=== PATIENT | male | born 1990 | race Caucasian/White ===

== ENCOUNTER 2021-03-21 05:15 | Emergency (ER) | payer SELFPAY ==
[~2021-03-21] VITALS: Ht 160 cm; Wt 54.0 kg
[2021-03-21 05:22] VITALS: BP 173/90
--- NOTE | 2021-03-21 05:27 | NUR ---
TO BED 3 AMBULATORY
--- NOTE | 2021-03-21 05:30 | NUR ---
PT. IS A 30 Y/O MALE THAT CAME INTO ED WITH C/O OF SHAKINESS. PT. STATES THAT HE HAS BEEN HAVING SHAKINESS ON BILATERAL UPPER EXTREMITIES SHAKINESS FOR 1 MONTH NOW AND "ON AND OFF IN HIS BODY." PT. STATES THAT HE ALSO HAS A HEADACHE, AND RATES IT 7/10 ON THE PAIN SCALE. ADMITS TO N/V/D AND MARIJUANA USE. SKIN IS PINK/WARM/DRY; AAOX4 WITH EVEN AND STEADY GAIT; HR EVEN AND REGULAR; PT DENIES ANY FEVER, CP, SOB, OR COUGH AT THIS TIME; VSS; PATIENT POSITIONED FOR COMFORT; HOB ELEVATED; BEDRAILS UP X1; BED DOWN. ER MD MADE AWARE OF PT STATUS. PMH: DENIES ALLERGIES: NKA
--- NOTE | 2021-03-21 05:30 | NUR ---
AMY ORR AT BEDSIDE FOR MEDICAL EXAMINATION
--- NOTE | 2021-03-21 05:35 | NUR ---
PER ERMD DOMINGA, DISREGARD VERONICA SWAB.
--- NOTE | 2021-03-21 05:41 | NUR ---
EKG PERFORMED AT BEDSIDE. EKG READS SINUS RHYTHM @ 78
[2021-03-21] MEDS: HYDROXYZINE HYDROCHLORIDE 25 MG TAB PO STA (05:47)
[2021-03-21 05:51] LABS: BASOPHILS # (AUTO) 0.1 K/uL (0.00-0.22); BASOPHILS % (AUTO) 0.5 % (0.0-2.0); EOSINOPHILS # (AUTO) 0.1 K/uL (0-0.4); EOSINOPHILS % (AUTO) 1.1 % (0.0-4.0); HEMATOCRIT 45.7 % (36-52); HEMOGLOBIN 15.5 g/dL (12.0-18.0); LYMPHOCYTES # (AUTO) 2.6 K/uL (2.0-11.5); LYMPHOCYTES % (AUTO) 23.6 % (20.5-51.1); MEAN CORPUSCULAR HEMOGLOBIN 29 pg (27-31); MEAN CORPUSCULAR HGB CONC 34 g/dL (33-37); MEAN CORPUSCULAR VOLUME 84.8 fL (80-94); MONOCYTES # (AUTO) 0.7 K/uL (0.8-1.0); MONOCYTES % (AUTO) 6.4 % (1.7-9.3); NEUTROPHILS # (AUTO) 7.4 K/uL (1.8-7.7); NEUTROPHILS % (AUTO) 68.4 % (42.2-75.2); PLATELET COUNT (AUTO) 173 K/uL (140-450); RED BLOOD CELL COUNT(AUTO) 5.39 MIL/uL (4.20-6.10); WHITE BLOOD COUNT (AUTO) 10.8 K/uL (4.8-10.8)
[2021-03-21] MEDS ORDERED: ATA25 PO (05:51)
--- NOTE | 2021-03-21 06:00 | NUR ---
PT. LAYING IN SUPINE POSITION, VOICES NO COMPLAINTS AT THIS TIME. WAITING FOR DISPOSITION
--- NOTE | 2021-03-21 06:15 | NUR ---
PT. AMBULATED TO BATHROOM WITH EVEN AND STEADY GAIT.
[2021-03-21 06:23] LABS: ALBUMIN 4.6 g/dL (3.4-5.0); ANION GAP 14.6 (8-16); CARBON DIOXIDE 24.5 mmol/L (21-32); CREATININE 1.2 mg/dL (0.6-1.3); FREE T4 (FREE THYROXINE) 1.02 ng/dL (0.76-1.46); POTASSIUM 3.1 mmol/L (3.5-5.1); THYROID STIMULATING HORMONE 1.91 uIU/mL (0.34-3.74); TOTAL BILIRUBIN 0.5 mg/dL (0.0-1.0)
[2021-03-21] MEDS ORDERED: IBUP-2213 PO (06:36)
[2021-03-21] MEDS ORDERED: ONDA8TAB87 PO (06:36)
[2021-03-21] MEDS: KETOROLAC 60 MG/2 ML VIAL IM ONE (06:42)
[2021-03-21] MEDS: ONDANSETRON 4 MG ODT PO ONE (06:43)
[2021-03-21 06:50] VITALS: BP 138/79
--- NOTE | 2021-03-21 06:50 | NUR ---
Patient discharged with v/s stable. Written and verbal after care instructions given and explained. Patient alert, oriented and verbalized understanding of instructions. Ambulatory with steady gait. All questions addressed prior to discharge. ID band removed. Patient advised to follow up with PMD. Rx of ATARAX HCL, IBUPROFEN AND ZOFRAN given. Patient educated on indication of medication including possible reaction and side effects. Opportunity to ask questions provided and answered.
== END 2021-03-21 06:50 | disposition home or self-care (01) ==
LOC: MED 05:15
DX: F41.9 Anxiety disorder, unspecified (principal); R11.2 Nausea with vomiting, unspecified; F12.10 Cannabis abuse, uncomplicated
CPT/HCPCS: 36415; 80053; 84439; 84443; 85025; 93005; 96372; 99284; J1885; Q0162

== ENCOUNTER 2021-03-23 02:50 | Emergency (ER) | payer SELFPAY ==
[~2021-03-23] VITALS: Ht 157.5 cm; Wt 54.4 kg
[~2021-03-23 02:50] MED LIST: ATA25 PO; IBUP-2213 PO; ONDA8TAB87 PO
[2021-03-23 03:00] VITALS: BP 136/77
[2021-03-23] MEDS ORDERED: LORazepam 1 MG TAB PO ONE (03:05)
[2021-03-23 03:39] VITALS: BP 136/77
== END 2021-03-23 03:39 | disposition home or self-care (01) ==
LOC: MED 02:50
DX: F41.9 Anxiety disorder, unspecified (principal); Z79.899 Other long term (current) drug therapy
CPT/HCPCS: 99283